=== PATIENT | male | born 1970 | race Asian ===

== ENCOUNTER 2020-08-26 14:45 | Outpatient (REF) | payer BC, SELFPAY ==
[2020-08-26 16:15] LABS: Estimated Average Glucose 126 mg/dL
== END 2020-08-26 14:46 | disposition home or self-care (01) ==
LOC: HO.HMGCLDS 14:45
PROVIDERS: PCP Internal Medicine; Visit Provider Internal Medicine
DX: E11.9 Type 2 diabetes mellitus without complications (principal)
CPT/HCPCS: 36415; 83036

== ENCOUNTER 2021-11-30 13:49 | Outpatient (REF) | payer BC, SELFPAY ==
--- NOTE | ~2021-11-30 | XR_ITS ---
EXAMINATION: XR THORACIC SPINE CLINICAL INFORMATION: Upper back pain, tenderness COMPARISON: None TECHNIQUE: 3 views of the thoracic spine were obtained. FINDINGS: Convex left upper thoracic scoliosis. Normal sagittal alignment. Mild loss of disc height and osteophytosis in the lower cervical spine by. Thoracic vertebral body and disc heights are maintained. No fracture seen. Posterior elements are intact. XR/XR thoracic spine 3V IMPRESSION: Mild convex left upper thoracic scoliosis. This could be positional or due to muscle spasm. Lower cervical degenerative disc disease.
--- NOTE | ~2021-11-30 | XR_ITS ---
EXAMINATION: XR SCAPULA, RIGHT CLINICAL INFORMATION: Right upper back pain and tenderness COMPARISON: None TECHNIQUE: AP and scapular Y views of the right scapula. FINDINGS: The bones and soft tissues are normal. No scapular fracture. Glenohumeral and acromioclavicular alignment is normal. XR/XR scapula RT IMPRESSION: No acute osseous abnormality of the right scapula.
== END 2021-11-30 13:50 | disposition home or self-care (01) ==
LOC: HO.HMGCX 13:49
PROVIDERS: PCP Internal Medicine; Visit Provider Internal Medicine
DX: M54.89 Other dorsalgia (principal)
CPT/HCPCS: 72072; 73010

== ENCOUNTER 2022-05-04 09:16 | Emergency (ER) | payer BC, SELFPAY ==
--- NOTE | 2022-05-04 | CA_ITS ---
Acquisition Time: 2022-05-04 14:13:12 Total Exercise Time: 00:06:57 Test Indications: CP, SOB Medications: SEE H Protocol: KIN Max HR: 153 BPM 90% of Pred: 170 BPM Max BP: 126/068 mmHG Max Work Load: 8.4 METS Exercise stress test with exercise 6 min 57 sec of Kin protocol, achieving 90% MPHR, with report of moderate sob and 6/10 anterior chest pressure, without arrythmia, with normotensive response to exercise, without EKG changes meeting criteria for ischemia. In recovery his chest pressure pressure resolved and breathing return to baseline., mild sob. Test reviewed with Dr Molina Referred By: Sincere Molina Overread By: EMMANUEL MAIN
--- NOTE | ~2022-05-04 | XR_ITS ---
EXAMINATION: XR CHEST CLINICAL INFORMATION: Chest pain COMPARISON: 10/02/2014 TECHNIQUE: 2 views of the chest were obtained. FINDINGS: No significant abnormality is noted involving the heart, lungs, mediastinum, bony thorax or soft tissues. XR/XR chest 2V IMPRESSION: Unremarkable examination.
--- NOTE | 2022-05-04 09:23 | ECG_ITS ---
Test Reason : CHEST PAIN Blood Pressure : / mmHG Vent. Rate : 100 BPM Atrial Rate : 100 BPM P-R Int : 162 ms QRS Dur : 090 ms QT Int : 374 ms P-R-T Axes : 071 057 070 degrees QTc Int : 482 ms Normal sinus rhythm Prolonged QT Abnormal ECG When compared with ECG of 04-MAY-2022 09:35, No significant change was found Referred By: Elena Ruvalcaba Electronically Signed By:Sincere Molina
--- NOTE | 2022-05-04 09:23 | ECG_ITS ---
Test Reason : CHEST PAIN Blood Pressure : / mmHG Vent. Rate : 083 BPM Atrial Rate : 083 BPM P-R Int : 166 ms QRS Dur : 094 ms QT Int : 402 ms P-R-T Axes : 069 051 070 degrees QTc Int : 472 ms Normal sinus rhythm Incomplete right bundle branch block Borderline ECG No previous ECGs available Referred By: Elena Ruvalcaba Electronically Signed By:Sincere Molina
[2022-05-04 09:25] VITALS: BP 136/87; PULSE 100; RESP 18; TEMP 36.8; O2SAT 98; BMI 23.5
--- NOTE | 2022-05-04 09:29 | PC.NURSE ---
51 y/o MBIBA from home with anxiety and chest pressure. hx of similar episodes. pt is aox3, calm and cooperative, VSS. plan for labs, EKG.
[2022-05-04 09:39] VITALS: BP 140/81; PULSE 78; RESP 14; TEMP 37.3; O2SAT 100
[2022-05-04 09:41] LABS: MANUAL DIFF FLAG NO
[2022-05-04 09:46] LABS: Basophils Percent Auto 0.6 % (0-2); Eosinophils Percent Auto 0.9 % (0-4); Hematocrit 46.1 % (42.0-52.0); Hemoglobin 15.8 g/dl (14.0-18.0); Imm Gran Abs Auto 0.01 X10*3/uL (0.00-0.03); Imm Gran Pct Auto 0.2 % (0.0-0.4); Lymphocytes Absolute Auto 1.1 X10*3/uL (1.2-4.9); Lymphocytes Percent Auto 23.9 % (20-40); Mean Corpuscular HGB Conc 34.3 g/dl (31.0-36.0); Mean Corpuscular Hemoglobin 28.1 pg (27.0-33.0); Mean Corpuscular Volume 81.9 fL (80.0-98.0); Mean Platelet Volume 8.7 fL (9.4-12.4); Monocytes Absolute Auto 0.2 X10*3/uL (0.1-1.2); Monocytes Percent Auto 4.7 % (2-11); Neutrophils Absolute Auto 3.2 x10*3/uL (2.0-8.3); Neutrophils Percent Auto 69.7 % (45-73); Platelet Count 261 X10*3/uL (160-400); Red Blood Count 5.63 X10*6/uL (4.60-5.80); Red Cell Distribution Width 11.8 % (11.0-16.0); White Blood Count 4.7 X10*3/uL (4.8-10.8)
[2022-05-04 10:00] LABS: COVID-19 Test Negative (Negative); IDNOW Serial# 16C4AD1C
[2022-05-04 10:02] LABS: Alanine Aminotransferase 20 U/L (0-40); Albumin Level 4.8 g/dL (3.5-5.0); Alkaline Phosphatase 83 U/L (39-117); Anion Gap 16 (12-20); Aspartate Amino Transferase 22 U/L (5-37); Bilirubin Total 0.9 mg/dL (0.0-1.0); Blood Urea Nitrogen 10 mg/dL (9-16); Calcium 9.8 mg/dL (8.4-10.2); Carbon Dioxide 24 mmol/L (22-29); Chloride 102 mmol/L (96-108); Creatinine Clr Calc Pharmacy 97.2; Estimated Glomerular Filt Rate > 60; Glucose Random 135 mg/dL (60-115); Magnesium 1.9 mg/dL (1.6-2.6); Potassium 4.1 mmol/L (3.3-5.1); Sodium 138 mmol/L (135-145); Total Protein 7.7 g/dL (6.5-8.0)
[2022-05-04 10:03] LABS: IDNOW Serial# BCCEAD1C; Influenza A Negative (Negative); Influenza B2 Negative (Negative)
[2022-05-04 10:08] LABS: B Type Natriuretic Peptide < 10 pg/mL (<100)
[2022-05-04 10:09] LABS: Troponin-I High Sensitivity < 3.5 ng/L (<3.5-35.0)
--- NOTE | 2022-05-04 10:15 | ED.CHESTPAIN ---
HPI - Chest Pain General Chief Complaint: Anxiety Stated Complaint: Chest pain per EMS Time Seen by Provider: 05/04/22 09:22 Source: patient Mode of arrival: ambulatory Limitations: no limitations History of Present Illness HPI narrative: Patient is a 51-year-old male presents to the emergency department for evaluation of chest pain described as pressure over the left anterior chest and shortness of breath both of which have been intermittent. He states that he awoke this morning with dizziness, and subsequently have the chest pressure and shortness of breath following. He states he is uncertain whether this may be related to his anxiety. He reports that his father 3 weeks ago from COVID-19 at 86 years old and he has been depressed about this. Yesterday he took Paxil and lorazepam for the 1st time in 6 months to try and help his symptoms. He is concerned that his current dizziness, chest pressure, shortness of breath may be in relation to anxiety/reinitiating these medications. Reports a past medical history of diabetes and high cholesterol. Related Data Allergies Allergy/AdvReac Type Severity Reaction Status Date / Time No Known Allergies Allergy Verified 05/04/22 09:28 Review of Systems Review of Systems: Constitutional : No Weight loss, No Fever, No Chills ENT/Mouth :? No sore throat, No Rhinorrhea Eyes: No Eye Pain, No Swelling Cardiovascular : pos Chest Pain, pos SOB, no Dyspnea on Exertion, No Orthopnea, No Edema, No Palpitations Respiratory : No Cough, No Sputum Gastrointestinal : No Nausea, No Vomiting, No Diarrhea, No abdominal Pain, No Hematochezia, No Melena Genitourinary : No Dysuria, No Urinary Frequency Musculoskeletal : No joint pain, No Myalgias, No Joint Swelling Skin : No Skin Lesions, No rash Neuro : No Weakness, No Numbness, positive Dizziness, No Headache Psych : No Anxiety/Panic, No Depression Heme/Lymph: No Bruising, No Lymphadenopathy Endocrine : No Polyuria, No Polydipsia Yes all other systems are reviewed and are negative [facility] Past Medical History Attestation statement: The following information was validated with the patient. Source: old records reviewed Physical Exam Vital Signs: Vital Signs: Last Vital Signs Temp 99.2 F 05/04/22 09:39 Pulse 70 05/04/22 16:00 Resp 16 05/04/22 16:00 BP 116/67 05/04/22 15:34 Pulse Ox 100 05/04/22 16:00 O2 Del Method 05/04/22 16:00 BMI result Body Mass Index 23.5 Appearance: Alert.?Oriented to person, place and time. No acute distress.?Normal affect. Eyes: Pupils equal, round and reactive to light.? ENT: Pharynx normal.?? Neck: Normal inspection.? Neck supple.?? CVS: Heart sounds normal. Normal heart rate and rhythm.? Pulses normal.?? Respiratory: No respiratory distress.? Lung sounds clear to auscultation bilaterally?? Abdomen: Soft and non-tender. Normoactive bowel sounds. No pulsatile mass.?? Skin: Skin warm and dry.? Normal skin color.? ? Extremities: No lower extremity edema.? No calf ttp? Neuro: Moves all extremities spontaneously. Sensation intact bilaterally. CN II-XII intact. No focal neuro deficits. Ambulates with normal steady gait. Course Reevaluation(s) Reevaluation #1: CBC is overall unremarkable. CMP is unremarkable. Troponin <3.5, EKG reveals normal sinus rhythm with incomplete right bundle-branch block with ST upsloping in anterior/lateral lead V3-V6, none prior available for review. Will obtain delta troponin. BMP is within normal limits. Chest x-ray is without acute cardiopulmonary process. Reevaluation #2: Cardiology Dr. Molina at bedside and evaluated patient. Nonspecific ST changes, repeat EKG with improvement in of slope in V3-V5, however changes more prominent in V2. Patient does have anxiety, but currently with improvement in pressure and shortness of breath though not completely resolved after being medicated prior. Serial troponin have remained <3.5. Will determine whether patient can have stress test obtained today, will keep NPO at this time. Time: 13:42 Reevaluation #3: Received call from Cardiology, Dr. Molina, prior to stress testing patient was at that time reporting shortness of breath. He was able to engage on treadmill for 7 minutes for stress testing, he did continue to have reports of shortness of breath and chest pressure, there were however no EKG changes. Cardiology feels this is most likely anxiety, however he may follow up outpatient in their office. At the time of my re-examination currently, he does appear significantly anxious. Patient to receive lorazepam at this time, his is going to drive him home from the emergency department. He is stable.. Time: 15:55 Medications Administered Discontinued Medications Generic Name Dose Route Start Last Admin Trade Name Lesly PRN Reason Stop Dose Admin Aspirin 324 mg 05/04/22 10:21 05/04/22 10:23 Aspirin 81 Mg Tab.Chew PO 05/04/22 10:22 Not Given ONCE ONE Lorazepam 1 mg 05/04/22 15:53 05/04/22 16:08 Lorazepam 1 Mg Tablet PO 05/04/22 15:54 1 mg ONCE ONE Administration Nitroglycerin 0.5 inch 05/04/22 10:21 05/04/22 10:29 Nitroglycerin 2 % Oint 1 Gm Packet TRANSDERMA 05/04/22 10:22 0.5 inch ONCE ONE Administration Medical Decision Making Medical Decision Making [facility] Narrative: Patient is a 51-year-old male with a past medical history of diabetes, hyperlipidemia, presenting to emergency department for evaluation of chest pain, shortness of breath, and dizziness with additional reports of anxiety as outlined in HPI. At the time of my examination he is overall well-appearing. He is afebrile without tachycardia, tachypnea, or hypoxia. Mildly hypertensive. No respiratory distress. Physical examination is overall benign. Will obtain CBC to evaluate for leukocytosis/ anemia, CMP and lipase to evaluate for abnormal electrolytes /abnormal renal function/ abnormal hepatic/biliary function, EKG and troponin to evaluate for ischemia/ACS. Chest x-ray to evaluate for consolidation/ infiltrate/ mass/ pulmonary congestion and will obtain viral testing. Patient received aspirin 324 mg orally from EMS prior to arrival, will also trial nitro paste at this time. Differential Diagnosis Differential Diagnoses: The differential diagnosis associated with the presentation includes (ACS, pleural effusion, CHF, pneumonia, viral upper respiratory infection, musculoskeletal, anxiety) Consult Healthcare Provider Management of the patient was discussed with: Pipeline Engineer (Cardiology Dr. Molina) Lab Data [facility] Lab Attestation statement: I reviewed the patient's lab results. 05/04/22 09:36 05/04/22 09:36 Labs: Lab Results 05/04/22 05/04/22 05/04/22 Range/Units 09:36 09:36 09:36 WBC 4.7 L (4.8-10.8) X10*3/uL RBC 5.63 (4.60-5.80) X10*6/uL Hgb 15.8 (14.0-18.0) g/dl Hct 46.1 (42.0-52.0) % MCV 81.9 (80.0-98.0) fL MCH 28.1 (27.0-33.0) pg MCHC 34.3 (31.0-36.0) g/dl RDW 11.8 (11.0-16.0) % Plt Count 261 (160-400) X10*3/uL MPV 8.7 L (9.4-12.4) fL Immature Gran % (Auto) 0.2 (0.0-0.4) % Neut % (Auto) 69.7 (45-73) % Lymph % (Auto) 23.9 (20-40) % [place] % (Auto) 4.7 (2-11) % Eos % (Auto) 0.9 (0-4) % Baso % (Auto) 0.6 (0-2) % Lymph # (Auto) 1.1 L (1.2-4.9) X10*3/uL [place] # (Auto) 0.2 (0.1-1.2) X10*3/uL Eos # (Auto) 0.0 (0.0-0.4) X10*3/uL Baso # (Auto) 0.0 (0.0-0.2) X10*3/uL Abs Immat Gran (auto) 0.01 (0.00-0.03) X10*3/uL Absolute Neuts (auto) 3.2 (2.0-8.3) x10*3/uL Absolute Nucleated RBC 0.000 (0.0-0.012) X10*3/uL Nucleated RBC % (auto) 0.0 (0.0-0.2) /100WBC Sodium 138 (135-145) mmol/L Potassium 4.1 (3.3-5.1) mmol/L Chloride 102 (96-108) mmol/L Carbon Dioxide 24 (22-29) mmol/L Anion Gap 16 (12-20) BUN 10 (9-16) mg/dL Creatinine 0.85 (0.5-1.4) mg/dL Estim Creat Clear Calc 97.2 Estimated GFR > 60 Random Glucose 135 H (60-115) mg/dL Calcium 9.8 (8.4-10.2) mg/dL Magnesium 1.9 (1.6-2.6) mg/dL Total Bilirubin 0.9 (0.0-1.0) mg/dL AST 22 (5-37) U/L ALT 20 (0-40) U/L Alkaline Phosphatase 83 (39-117) U/L Troponin I High Sens < 3.5 (<3.5-35.0) ng/L B-Natriuretic Peptide (<100) pg/mL Total Protein 7.7 (6.5-8.0) g/dL Albumin 4.8 (3.5-5.0) g/dL COVID-19 ([facility]IS EDUARDO) (Negative) COVID-19 Clin Com Influenza Type A ([facility]) (Negative) Influenza Type B ([facility]) (Negative) Influenza A & B Note 05/04/22 05/04/22 05/04/22 Range/Units 09:36 09:36 09:36 WBC (4.8-10.8) X10*3/uL RBC (4.60-5.80) X10*6/uL Hgb (14.0-18.0) g/dl Hct (42.0-52.0) % MCV (80.0-98.0) fL MCH (27.0-33.0) pg MCHC (31.0-36.0) g/dl RDW (11.0-16.0) % Plt Count (160-400) X10*3/uL MPV (9.4-12.4) fL Immature Gran % (Auto) (0.0-0.4) % Neut % (Auto) (45-73) % Lymph % (Auto) (20-40) % [place] % (Auto) (2-11) % Eos % (Auto) (0-4) % Baso % (Auto) (0-2) % Lymph # (Auto) (1.2-4.9) X10*3/uL [place] # (Auto) (0.1-1.2) X10*3/uL Eos # (Auto) (0.0-0.4) X10*3/uL Baso # (Auto) (0.0-0.2) X10*3/uL Abs Immat Gran (auto) (0.00-0.03) X10*3/uL Absolute Neuts (auto) (2.0-8.3) x10*3/uL Absolute Nucleated RBC (0.0-0.012) X10*3/uL Nucleated RBC % (auto) (0.0-0.2) /100WBC Sodium (135-145) mmol/L Potassium (3.3-5.1) mmol/L Chloride (96-108) mmol/L Carbon Dioxide (22-29) mmol/L Anion Gap (12-20) BUN (9-16) mg/dL Creatinine (0.5-1.4) mg/dL Estim Creat Clear Calc Estimated GFR Random Glucose (60-115) mg/dL Calcium (8.4-10.2) mg/dL Magnesium (1.6-2.6) mg/dL Total Bilirubin (0.0-1.0) mg/dL AST (5-37) U/L ALT (0-40) U/L Alkaline Phosphatase (39-117) U/L Troponin I High Sens (<3.5-35.0) ng/L B-Natriuretic Peptide < 10 (<100) pg/mL Total Protein (6.5-8.0) g/dL Albumin (3.5-5.0) g/dL COVID-19 ([facility]UARDO) Negative (Negative) COVID-19 Clin Com See Note Influenza Type A ([facility]) Negative (Negative) Influenza Type B ([facility]) Negative (Negative) Influenza A & B Note See Note 05/04/22 05/04/22 Range/Units 10:59 12:36 WBC (4.8-10.8) X10*3/uL RBC (4.60-5.80) X10*6/uL Hgb (14.0-18.0) g/dl Hct (42.0-52.0) % MCV (80.0-98.0) fL MCH (27.0-33.0) pg MCHC (31.0-36.0) g/dl RDW (11.0-16.0) % Plt Count (160-400) X10*3/uL MPV (9.4-12.4) fL Immature Gran % (Auto) (0.0-0.4) % Neut % (Auto) (45-73) % Lymph % (Auto) (20-40) % [place] % (Auto) (2-11) % Eos % (Auto) (0-4) % Baso % (Auto) (0-2) % Lymph # (Auto) (1.2-4.9) X10*3/uL [place] # (Auto) (0.1-1.2) X10*3/uL Eos # (Auto) (0.0-0.4) X10*3/uL Baso # (Auto) (0.0-0.2) X10*3/uL Abs Immat Gran (auto) (0.00-0.03) X10*3/uL Absolute Neuts (auto) (2.0-8.3) x10*3/uL Absolute Nucleated RBC (0.0-0.012) X10*3/uL Nucleated RBC % (auto) (0.0-0.2) /100WBC Sodium (135-145) mmol/L Potassium (3.3-5.1) mmol/L Chloride (96-108) mmol/L Carbon Dioxide (22-29) mmol/L Anion Gap (12-20) BUN (9-16) mg/dL Creatinine (0.5-1.4) mg/dL Estim Creat Clear Calc Estimated GFR Random Glucose (60-115) mg/dL Calcium (8.4-10.2) mg/dL Magnesium (1.6-2.6) mg/dL Total Bilirubin (0.0-1.0) mg/dL AST (5-37) U/L ALT (0-40) U/L Alkaline Phosphatase (39-117) U/L Troponin I High Sens < 3.5 < 3.5 (<3.5-35.0) ng/L B-Natriuretic Peptide (<100) pg/mL Total Protein (6.5-8.0) g/dL Albumin (3.5-5.0) g/dL COVID-19 ([facility]IS EDUARDO) (Negative) COVID-19 Clin Com Influenza Type A ([facility]) (Negative) Influenza Type B ([facility]) (Negative) Influenza A & B Note Independent Interpretation I performed an independent interpretation of an: EKG and Plain X-Ray (I have personally interpreted chest x-ray and agree with radiologist impression.) Interpretation: EKG Rate: 83 Rhythm:?normal sinus rhythm with incomplete right bundle-branch block Spencer:? Normal Normal P waves.? Normal AUDREY.?? Normal QRS complex.?? ST T wave :??No ST elevation. ST upsloping in anterior/lateral lead V3-V6 qTC: 472 prior studies:? None prior available for review The study has been interpreted contemporaneously by me. Radiology Impression Discussion of test interpretation with radiology: I have reviewed the radiologist's reading. Radiologist Impression: XR/XR chest 2V IMPRESSION: Unremarkable examination. Prescription Management I considered prescription management with: Other (Anxioltic prescribed outpatient) Chronic Conditions Patient?s care impacted by: Diabetes Critical Care Time Critical Care Time Critical Care Time: Yes Total Critical Care Time: 45 Attestation: I personally attest to this critical care time spent taking care of the patient exclusive of all other billable procedures was approximately 45 minutes including initial evaluation of patient, ordering tests, x-ray interpretation, EKG interpretation, medical consultation, documentation, re-evaluation. Discharge Plan Discharge Clinical Impression: Chest pain, Acute anxiety Patient Disposition: Home, Self-Care Instructions: Chest Pain (ED), Anxiety (ED) Additional Instructions: As we discussed, your testing today was overall normal. It is unlikely that the symptoms you are experiencing are in relation to your heart. I suspect that your chest pain and shortness of breath are in relation to your levels of anxiety. It is important that you continue to follow with your primary care provider for management of your anxiety. Continue taking Paxil and lorazepam I have included the office information for the engineering professionals, please call their office to arrange for a follow-up visit outpatient You may return back to the emergency department with any new or worsening symptoms or concerns. Referrals: Sincere Molina MD [Physician] - Leo Nagy MD [Primary Care Provider] - Interventions: ED Discharge Assessment Last Done: 05/04/22 16:16 Discharge Date/Time: 05/04/22 16:16
[2022-05-04] MEDS: Nitroglycerin 2 % Oint 1 GM Packet 0.5 INCH TRANSDERMA (10:29)
[2022-05-04 11:30] LABS: Troponin-I High Sensitivity < 3.5 ng/L (<3.5-35.0)
--- NOTE | 2022-05-04 12:52 | ECG_ITS ---
Test Reason : CARDIAC CHANGES Blood Pressure : / mmHG Vent. Rate : 097 BPM Atrial Rate : 097 BPM P-R Int : 158 ms QRS Dur : 082 ms QT Int : 374 ms P-R-T Axes : 070 046 068 degrees QTc Int : 474 ms Normal sinus rhythm Normal ECG When compared with ECG of 04-MAY-2022 12:48, No significant change was found Referred By: Sincere Molina Electronically Signed By:Sincere Molina
[2022-05-04 13:17] LABS: Troponin-I High Sensitivity < 3.5 ng/L (<3.5-35.0)
[2022-05-04 13:25] VITALS: BP 120/72; PULSE 95; RESP 16; O2SAT 97
--- NOTE | 2022-05-04 13:48 | P.CONCA_ITS ---
History of Present Illness History of Present Illness Date of Service: 05/04/22 Requesting physician: Leo Nagy Chief complaint: Chest pain Narrative: 51-year-old gentleman with background history of anxiety disorder who is presenting with shortness of breath and chest discomfort. There is a language barrier. He is complaining of left-sided chest discomfort. He is unable to describe how it feels and is describing a like a pain. He said today morning he felt dizzy and then developed breathing problems. He has been taking Paxil previously but it appears he was not taking regularly and restarted yesterday. He is saying he has anxiety disorder but never had panic attacks. Denying any other issues right now. Seems quite anxious and shaking due to anxiety. [facility] Social History Social History Smoked in Last 30 Days: No Advance Directives: No Advance Directives Information Provided: No Meds Allergies Allergy/AdvReac Type Severity Reaction Status Date / Time No Known Allergies Allergy Verified 05/04/22 09:28 Physical Exam Vital Signs: Vital Signs: Last Vital Signs Temp 99.2 F 05/04/22 09:39 Pulse 95 05/04/22 13:25 Resp 16 05/04/22 13:25 BP 120/72 05/04/22 13:25 Pulse Ox 97 05/04/22 13:25 O2 Del Method 05/04/22 13:25 BMI result Body Mass Index 23.5 GENERAL APPEARANCE: in no acute distress, anxious appearing.. NECK: no carotid bruit, no jugular venous distention. SKIN: no suspicious lesions, warm and dry. HEART: no murmurs, regular rate and rhythm. LUNGS: clear to auscultation bilaterally. ABDOMEN: soft, nontender. EXTREMITIES: no edema. PERIPHERAL PULSES: equal. NEUROLOGIC: No gross deficits, AAO X 3 Objective Labs and Meds 05/04/22 09:36 05/04/22 09:36 Lab results: Laboratory Results - last 24 hr 05/04/22 05/04/22 05/04/22 09:36 09:36 09:36 WBC 4.7 L RBC 5.63 Hgb 15.8 Hct 46.1 MCV 81.9 MCH 28.1 MCHC 34.3 RDW 11.8 Plt Count 261 MPV 8.7 L Immature Gran % (Auto) 0.2 Neut % (Auto) 69.7 Lymph % (Auto) 23.9 [place] % (Auto) 4.7 Eos % (Auto) 0.9 Baso % (Auto) 0.6 Lymph # (Auto) 1.1 L [place] # (Auto) 0.2 Eos # (Auto) 0.0 Baso # (Auto) 0.0 Abs Immat Gran (auto) 0.01 Absolute Neuts (auto) 3.2 Absolute Nucleated RBC 0.000 Nucleated RBC % (auto) 0.0 Sodium 138 Potassium 4.1 Chloride 102 Carbon Dioxide 24 Anion Gap 16 BUN 10 Creatinine 0.85 Estim Creat Clear Calc 97.2 Estimated GFR > 60 Random Glucose 135 H Calcium 9.8 Magnesium 1.9 Total Bilirubin 0.9 AST 22 ALT 20 Alkaline Phosphatase 83 Troponin I High Sens < 3.5 B-Natriuretic Peptide Total Protein 7.7 Albumin 4.8 COVID-19 ([facility]O) COVID-19 Clin Com Influenza Type A ([facility]) Influenza Type B ([facility]) Influenza A & B Note 05/04/22 05/04/22 05/04/22 09:36 09:36 09:36 WBC RBC Hgb Hct MCV MCH MCHC RDW Plt Count MPV Immature Gran % (Auto) Neut % (Auto) Lymph % (Auto) [place] % (Auto) Eos % (Auto) Baso % (Auto) Lymph # (Auto) [place] # (Auto) Eos # (Auto) Baso # (Auto) Abs Immat Gran (auto) Absolute Neuts (auto) Absolute Nucleated RBC Nucleated RBC % (auto) Sodium Potassium Chloride Carbon Dioxide Anion Gap BUN Creatinine Estim Creat Clear Calc Estimated GFR Random Glucose Calcium Magnesium Total Bilirubin AST ALT Alkaline Phosphatase Troponin I High Sens B-Natriuretic Peptide < 10 Total Protein Albumin COVID-19 ([facility] EDUARDO) Negative COVID-19 Clin Com See Note Influenza Type A ([facility]) Negative Influenza Type B ([facility]) Negative Influenza A & B Note See Note 05/04/22 05/04/22 10:59 12:36 WBC RBC Hgb Hct MCV MCH MCHC RDW Plt Count MPV Immature Gran % (Auto) Neut % (Auto) Lymph % (Auto) [place] % (Auto) Eos % (Auto) Baso % (Auto) Lymph # (Auto) [place] # (Auto) Eos # (Auto) Baso # (Auto) Abs Immat Gran (auto) Absolute Neuts (auto) Absolute Nucleated RBC Nucleated RBC % (auto) Sodium Potassium Chloride Carbon Dioxide Anion Gap BUN Creatinine Estim Creat Clear Calc Estimated GFR Random Glucose Calcium Magnesium Total Bilirubin AST ALT Alkaline Phosphatase Troponin I High Sens < 3.5 < 3.5 B-Natriuretic Peptide Total Protein Albumin COVID-19 ([facility] EDUARDO) COVID-19 Clin Com Influenza Type A ([facility]) Influenza Type B ([facility]) Influenza A & B Note Imaging Radiologist's impression: Impressions Chest X-Ray 05/04/22 09:54 IMPRESSION: Unremarkable examination. Assessment and Plan (1) Chest pain: Status: Acute Plan [age] year gentleman with chest pain or shortness of breath starting this m orning. ECG reviewed and does not have any dynamic changes. Biomarkers are also normal. Blood pressure control is good. He has significant anxiety and potentially that is playing a role in his s ymptoms. Recommend doing an exercise stress test. We are able to arrange it today and who will perform it in the next hour. If stress test is normal then he can be discharged home. Thank you for allowing me to participate in the care of your patient. Please feel free to contact me if you have any questions. Time Spent With Patient Time: Total time managing care of this patient today ____ minutes. Procedures Date of Service Date of Service: 05/04/22
[2022-05-04 15:34] VITALS: BP 116/67; PULSE 98; RESP 18; O2SAT 100
[2022-05-04 16:00] VITALS: PULSE 70; RESP 16; O2SAT 100
[2022-05-04] MEDS: LORazepam 1 MG TABLET PO (16:08)
== END 2022-05-04 16:16 | disposition home or self-care (01) ==
PROVIDERS: Nurse Practitioner Family; Emergency Provider Student in an Organized Health Care Education/Training Program; PCP Internal Medicine
DX: R07.89 Other chest pain (principal); F41.1 Generalized anxiety disorder; F43.0 Acute stress reaction; R06.02 Shortness of breath; Z20.822 Contact with and (suspected) exposure to COVID-19; Z20.828 Contact with and (suspected) exposure to other viral communicable diseases; Z79.899 Other long term (current) drug therapy
CPT/HCPCS: 36415; 71046; 80053; 83735; 83880; 84484; 85025; 87502; 87635; 93005; 93017; 99284; 99285

== ENCOUNTER 2022-11-21 08:21 | Day surgery (SDC) | payer BC, SELFPAY ==
--- NOTE | 2022-11-17 11:51 | HO.ANESPROP2 ---
Documented by User: Sheryl Latif NP 11/17/22 11:53 HPI - Anesthesia Eval Consult details Narrative: 52yo M for Colonoscopy [facility] Active Problems Active Problems: All Active Problems (Updated 05/05/22 @ 00:00 by Lynette Redd) Chest pain (Acute) Past Medical History Medical History Anxiety HLD (hyperlipidemia) Social History Social History Advance Directives: No Advance Directives Information Provided: Yes Meds Allergies Allergy/AdvReac Type Severity Reaction Status Date / Time No Known Allergies Allergy Verified 05/04/22 09:28 Home Medications Medication Instructions Recorded Confirmed Last Taken Type atorvastatin 10 mg tablet 10 mg PO DAILY 11/17/22 11/17/22 Unknown History lorazepam 2 mg tablet 2 mg PO TID PRN Anxiety 11/17/22 11/17/22 Unknown History Exam Exam Date and Time: November 17, 2022 115 Assessment and Plan Assessment Anesthesia Assessment: Chart Reviewed Documented by User: Nadya Dee MD 11/21/22 09:05 [facility] Past Medical History Medical History Anxiety HLD (hyperlipidemia) Surgical History History of Problems with Anesthesia: No Social History Social History Advance Directives: No Advance Directives Information Provided: Yes Meds Allergies Allergy/AdvReac Type Severity Reaction Status Date / Time No Known Allergies Allergy Verified 05/04/22 09:28 Home Medications Medication Instructions Recorded Confirmed Last Taken Type atorvastatin 10 mg tablet 10 mg PO DAILY 11/17/22 11/17/22 Unknown History lorazepam 2 mg tablet 2 mg PO TID PRN Anxiety 11/17/22 11/17/22 Unknown History Assessment and Plan Assessment Anesthesia Assessment: Anesthesia Plan Discussed Final Anesthetic Review History of Problems with Anesthesia: No NPO: Yes ASA Class: II Final Preanesthetic Review: Meds/Allgs Chart Reviewed, Consent Obtained/Reviewed and Anes Risks/Benef Reviewed Patient Risk: Low Procedure Risk: Low Anesthetic Plan Anesthetic Plan: MAC: Disposition: Standard PACU
[2022-11-21 09:18] VITALS: BMI 25.4
[2022-11-21 09:21] VITALS: BP 111/69; PULSE 70; RESP 16; TEMP 36.2; O2SAT 99
[2022-11-21] MEDS: Lactated Ringers 1,000 ML 100 ML IVCONT (09:29)
[2022-11-21 10:52] VITALS: BP 98/56; PULSE 63; RESP 12; TEMP 36.1; O2SAT 98
--- NOTE | 2022-11-21 10:56 | PM.OP ---
Brief Operative Note Date of Service: 11/21/22 Pre-op diagnosis: Screening Post-op diagnosis: other (Polyp) Procedure: Colonoscopy to the cecum and TI with cold snare polypectomy x 1 Surgeon: Romulo Guerrero Anesthesia: MAC Was an Windows System Admin used for this Procedure?: No Estimated blood loss (mL): 2.0 Pathology: other (A. Polyp at 25cm) Condition: stable Disposition: PACU
[2022-11-21 11:07] VITALS: BP 119/74; PULSE 48; RESP 16; O2SAT 98
[2022-11-21 11:22] VITALS: BP 118/77; PULSE 54; RESP 16; O2SAT 100
[2022-11-21 11:37] VITALS: BP 113/72; PULSE 54; RESP 16; O2SAT 100
[2022-11-21 11:49] VITALS: BP 105/56; PULSE 55; RESP 16; TEMP 36.2; O2SAT 99
--- NOTE | 2022-11-21 12:28 | OP_ITS ---
DATE OF SERVICE: 11/21/2022 SURGEON: Romulo Guerrero MD INDICATIONS: The patient presents for evaluation of colorectal cancer screening. Full consent obtained from him for this, including risks of bleeding and perforation. PREOPERATIVE DIAGNOSIS: Colorectal cancer screening. POSTOPERATIVE DIAGNOSIS: PROCEDURE PERFORMED: Colonoscopy to cecum and terminal ileum with cold snare polypectomy. ESTIMATED BLOOD LOSS: COMPLICATIONS: ANESTHESIA: Monitored anesthesia care. ASSISTANTS: SPECIMENS: POSTOPERATIVE DIAGNOSES: Colorectal cancer screening. Small colon polyp, internal hemorrhoids. DESCRIPTION OF PROCEDURE: The patient was placed in the left lateral decubitus position. The digital rectal exam revealed no abnormalities. The Olympus video pediatric colonoscope was entered into the rectum and advanced easily to the cecum. Once in the cecum, I did identify a normal-appearing cecal pouch with appendiceal orifice and a normal-appearing ileocecal valve. The terminal ileum was cannulated and appeared normal. The scope was withdrawn back in the colon. The entire cecum and ileocecal valve appeared normal. The scope was then slowly withdrawn assessing all mucosal surfaces carefully. Preparation was excellent. At 25 cm was a flat, approximately 5 or 6 mm polyp, which was removed by cold snare polypectomy and recovered by suction. The polypectomy site appeared clean, without any sign of residual polyp nor significant bleeding. I did not visualize any other polyps, colitis, nor angiodysplasia. In the rectum, scope was retroflexed visualizing small internal hemorrhoids, but no other pathology. The rectal mucosa appeared normal. The scope was straightened and withdrawn from the patient. He tolerated the procedure well and was returned to recovery area in stable condition. IMPRESSION: 1. Small colon polyp. 2. Small internal hemorrhoids. PLAN: If the polyp is a tubular adenoma, I would recommend a followup colonoscopy in 5 years. If it is only hyperplastic, I would recommend a followup coloscopy in 10 years. He was advised not to use any aspirin and NSAIDs for 1 week. Romulo Guerrero MD RMW/KANEL / [id number] MTDD
== END 2022-11-21 12:45 | disposition home or self-care (01) ==
PROVIDERS: PCP Internal Medicine; Visit Provider Internal Medicine
PROC: 0DJD8ZZ Inspection of Lower Intestinal Tract, Via Natural or Artificial Opening Endoscopic (ICD-10-PCS; CPT 45378; principal; 2022-11-21 09:30)
DX: Z12.11 Encounter for screening for malignant neoplasm of colon (principal); K63.5 Polyp of colon; K64.8 Other hemorrhoids; E78.5 Hyperlipidemia, unspecified; F41.1 Generalized anxiety disorder; Z79.899 Other long term (current) drug therapy
CPT/HCPCS: 45385; 88305; J2250

== ENCOUNTER 2023-02-16 15:30 | Outpatient (REF) | payer BC, SELFPAY ==
--- NOTE | ~2023-02-16 | CT_ITS ---
EXAMINATION: CT SOFT TISSUE NECK WITH CONTRAST CLINICAL INFORMATION: Sialoadenitis. COMPARISON: None TECHNIQUE: Following the administration of 100 mL of Omnipaque 300 intravenous contrast, helical imaging was performed in the axial plane with generation of coronal and sagittal reformatted images. This CT examination was performed using dose optimization techniques as appropriate, variously including the following: *Automated exposure control *Adjustment of mA and/or kV according to patient size (this includes techniques or standardized protocols for targeted exams where dose is matched to indication/reason for exam; i.e. extremities or head) *Use of iterative reconstruction technique DLP: 338 mGy-cm FINDINGS: The bilateral parotid glands appear normal without inflammation or calculi. The submandibular glands also appear normal without inflammation or calculi. There is no evidence of [place]'s duct or Stensen's duct dilatation. The pharyngeal and laryngeal contours appear normal. No mass is seen. No enlarged cervical chain lymph nodes are seen. The thyroid gland is unremarkable. The major neck vessels are patent. There is an aberrant right subclavian artery. No acute intracranial abnormality is seen. The imaged lungs are clear. Mild degenerative changes are seen within the spine. Periodontal and periapical disease is noted in the dentition. The right maxillary sinus appears hypoplastic and partly opacified with polypoid mucosal thickening. CT/CT soft tissue neck w IV con IMPRESSION: No neck mass or suspicious lymphadenopathy identified. The parotid and submandibular glands appear normal.
[2023-02-16] MEDS: iohexoL 350 MG/ML 100 ML INFUS..BTL 60 ML IV (17:21)
[2023-02-17 08:59] LABS: Creatinine POC 0.5 mg/dL (0.5-1.4); GFR POC > 60
== END 2023-02-16 15:31 | disposition home or self-care (01) ==
LOC: HO.CT 15:30
PROVIDERS: PCP Internal Medicine; Visit Provider Internal Medicine
DX: K11.20 Sialoadenitis, unspecified (principal); M54.2 Cervicalgia
CPT/HCPCS: 70491; 82565; Q9967

== ENCOUNTER 2023-03-02 13:56 | Outpatient (REF) | payer BC, SELFPAY ==
[2023-03-02 15:58] LABS: MANUAL DIFF FLAG NO
[2023-03-02 16:06] LABS: Basophils Percent Auto 0.5 % (0-2); Eosinophils Percent Auto 0.8 % (0-4); Hematocrit 45.6 % (42.0-52.0); Hemoglobin 15.1 g/dl (14.0-18.0); Imm Gran Abs Auto 0.01 X10*3/uL (0.00-0.03); Imm Gran Pct Auto 0.3 % (0.0-0.4); Lymphocytes Absolute Auto 0.9 X10*3/uL (1.2-4.9); Lymphocytes Percent Auto 23.7 % (20-40); Mean Corpuscular HGB Conc 33.1 g/dl (31.0-36.0); Mean Corpuscular Hemoglobin 28.6 pg (27.0-33.0); Mean Corpuscular Volume 86.4 fL (80.0-98.0); Mean Platelet Volume 9.6 fL (9.4-12.4); Monocytes Absolute Auto 0.2 X10*3/uL (0.1-1.2); Monocytes Percent Auto 5.5 % (2-11); Neutrophils Absolute Auto 2.6 x10*3/uL (2.0-8.3); Neutrophils Percent Auto 69.2 % (45-73); Platelet Count 241 X10*3/uL (160-400); Red Blood Count 5.28 X10*6/uL (4.60-5.80); Red Cell Distribution Width 12.7 % (11.0-16.0); White Blood Count 3.8 X10*3/uL (4.8-10.8)
[2023-03-02 16:21] LABS: Alanine Aminotransferase 22 U/L (0-40); Albumin Level 4.4 g/dL (3.5-5.0); Alkaline Phosphatase 80 U/L (39-117); Anion Gap 10 (12-20); Aspartate Amino Transferase 22 U/L (5-37); Bilirubin Total 0.6 mg/dL (0.0-1.0); Blood Urea Nitrogen 13 mg/dL (9-16); Calcium 9.9 mg/dL (8.4-10.2); Carbon Dioxide 32 mmol/L (22-29); Chloride 102 mmol/L (96-108); Estimated Glomerular Filt Rate > 60; Glucose Random 109 mg/dL (60-115); Lipase 21 U/L (8-78); Potassium 4.8 mmol/L (3.3-5.1); Sodium 139 mmol/L (135-145); Total Protein 7.6 g/dL (6.5-8.0)
[2023-03-02 17:04] LABS: Amylase 83 U/L (28-100)
== END 2023-03-02 13:57 | disposition home or self-care (01) ==
LOC: HO.HMGCLDS 13:56
PROVIDERS: PCP Internal Medicine; Visit Provider Internal Medicine
DX: R10.9 Unspecified abdominal pain (principal); R53.83 Other fatigue
CPT/HCPCS: 36415; 80053; 82150; 83690; 85025

== ENCOUNTER 2023-04-10 09:16 | Outpatient (REF) | payer BC, SELFPAY ==
--- NOTE | ~2023-04-10 | CT_ITS ---
EXAMINATION: CT ABDOMEN AND PELVIS WITH CONTRAST CLINICAL INFORMATION: Abdominal pain. COMPARISON: None available. TECHNIQUE: Multidetector volumetric images were obtained from the superior aspect of the liver through the pubic symphysis following administration 85 mL of Omnipaque 350 intravenous contrast. Sagittal and coronal reformatted images were obtained on the technologist's workstation. Oral contrast: No This CT examination was performed using dose optimization techniques as appropriate, variously including the following: *Automated exposure control *Adjustment of mA and/or kV according to patient size (this includes techniques or standardized protocols for targeted exams where dose is matched to indication/reason for exam; i.e. extremities or head) *Use of iterative reconstruction technique DLP: 225 mGy-cm FINDINGS: LUNG BASES: The visualized lung bases are unremarkable. LIVER, GALLBLADDER, AND BILIARY TREE: The liver is mildly decreased in attenuation. Few hepatic cysts and additional scattered hypodensities too small to characterize. No biliary ductal dilatation is present. The gallbladder is unremarkable with no evidence of radiopaque gallstones, gallbladder wall thickening, or obvious pericholecystic inflammatory changes. PANCREAS: No ductal dilatation. SPLEEN: Not enlarged. ADRENAL GLANDS: No adrenal mass. KIDNEYS AND URETERS: The kidneys are symmetric in size and enhancement. No hydronephrosis. No perinephric stranding. BLADDER: Circumferential wall thickening. GASTROINTESTINAL TRACT: Jejunojejunal intussusception in the left lower quadrant No small bowel obstruction. Appendix is within normal limits. There is wall thickening of the rectosigmoid colon. No clear evidence of underlying diverticular disease. ABDOMINAL WALL: No significant hernia is appreciated. LYMPH NODES: No bulky lymphadenopathy. VASCULAR: Normal caliber abdominal aorta. PELVIC VISCERA: Enlarged prostate gland. OSSEOUS STRUCTURES: No destructive bone lesions. CT/CT abdomen pelvis w IV con IMPRESSION: Long segment wall thickening of the rectosigmoid colon. No clear evidence of diverticulosis. This likely represents proctocolitis. Infectious and inflammatory etiologies should be considered. Jejunojejunal intussusception in the left lower quadrant. Circumferential wall thickening of the urinary bladder. Advise correlation with urinalysis.
[2023-04-11 07:06] LABS: Creatinine POC 0.7 mg/dL (0.5-1.4); GFR POC 60
== END 2023-04-10 09:17 | disposition home or self-care (01) ==
LOC: HO.CT 09:16
PROVIDERS: PCP Internal Medicine; Visit Provider Internal Medicine
DX: R10.9 Unspecified abdominal pain (principal)
CPT/HCPCS: 74177; 82565; Q9967

== ENCOUNTER 2023-06-28 13:17 | Outpatient (REF) | payer BC, SELFPAY ==
--- NOTE | ~2023-06-28 | XR_ITS ---
EXAMINATION: XR CHEST CLINICAL INFORMATION: Evaluation for pulmonary nodules COMPARISON: 05/04/2022 TECHNIQUE: 2 views of the chest were obtained. FINDINGS: Lungs grossly clear. No masses or consolidations are seen. Section CT is better to detect small nodules. No change however from the prior study. Heart and pulmonary vessels normal. No pleural effusion. XR/XR chest 2V IMPRESSION: No active disease.
== END 2023-06-28 13:18 | disposition home or self-care (01) ==
LOC: HO.HMGCX 13:17
PROVIDERS: PCP Internal Medicine; Visit Provider Internal Medicine
DX: R91.8 Other nonspecific abnormal finding of lung field (principal)
CPT/HCPCS: 71046

== ENCOUNTER 2023-08-31 10:27 | Outpatient (REF) | payer BC, SELFPAY ==
--- NOTE | ~2023-08-31 | CT_ITS ---
EXAMINATION: CT CHEST WITH CONTRAST CLINICAL INFORMATION: Pulmonary nodule. COMPARISON: Chest radiographs 06/28/2023 CT abdomen/pelvis 04/10/2023 TECHNIQUE: Multidetector volumetric CT imaging of the chest was obtained after the administration of 65 mL of Omnipaque 350 intravenous contrast without immediate adverse reactions. Axial MIP volume rendering provided. Sagittal and coronal reformatted images were obtained. This CT examination was performed using dose optimization techniques as appropriate, variously including the following: *Automated exposure control *Adjustment of mA and/or kV according to patient size (this includes techniques or standardized protocols for targeted exams where dose is matched to indication/reason for exam; i.e. extremities or head) *Use of iterative reconstruction technique DLP: 131 mGy-cm FINDINGS: LUNGS: No suspicious pulmonary nodules. No focal consolidation. Central airways are patent. MEDIASTINUM: Imaged thyroid gland is unremarkable. No mediastinal or hilar lymphadenopathy. Great vessels are of normal caliber. Heart size is normal. No pericardial effusion. PLEURA: No pleural effusion. AXILLA: No axillary lymphadenopathy. UPPER ABDOMEN: Scattered hepatic cysts. Hepatic steatosis. No adrenal mass. OSSEOUS STRUCTURES: No destructive bone lesions. CT/CT chest w IV con IMPRESSION: No suspicious pulmonary nodule. No acute intrathoracic abnormality.
[2023-08-31] MEDS: iohexoL 350 MG/ML 100 ML INFUS..BTL 65 ML IV (11:38)
[2023-09-04 07:45] LABS: Creatinine POC 0.7 mg/dL (0.5-1.4); GFR POC > 60
== END 2023-08-31 10:28 | disposition home or self-care (01) ==
LOC: HO.CT 10:27
PROVIDERS: PCP Internal Medicine; Visit Provider Internal Medicine
DX: R91.1 Solitary pulmonary nodule (principal)
CPT/HCPCS: 71260; 82565; Q9967

== ENCOUNTER 2024-02-05 08:57 | Outpatient (REF) | payer BC, SELFPAY ==
--- NOTE | ~2024-02-05 | FL_ITS ---
EXAMINATION: XR FLUOROSCOPY UPPER GI WITH AIR CLINICAL INFORMATION: Abdominal discomfort, epigastric. COMPARISON: No prior. TECHNIQUE: Fluoroscopic air contrast upper GI examination was performed utilizing standard techniques with thin and thick barium and effervescent granules. Numerous spot images were obtained. FINDINGS: Dual and single contrast images of the esophagus demonstrate normal caliber, contour, and mucosal pattern. No evidence of stricture, mass, or ulcerations identified. Esophageal peristalsis is moderately disorganized. No evidence of hiatus hernia identified. Mild gastroesophageal reflux is seen up to the distal esophagus. Dual contrast and single contrast images of the stomach demonstrated normal contour and mucosal pattern without evidence of mass, ulceration, or other abnormality. Contrast freely passed into the gastric antrum and duodenal bulb without delay. Single and air-contrast images of the duodenal bulb demonstrate no abnormality. The duodenal sweep and proximal jejunum demonstrate normal caliber but prominent folds, possibly representing proximal enteritis. This could be on the basis of peptic or inflammatory disease. FLUOROSCOPY TIME: 3 minutes 54 seconds Number of Spot Images: 8 Number of Cine: 13 DOSE AREA PRODUCT: 2181 uGy-m2 (microgray-meter squared) FL/FL upper GI w air w Ba Swallow IMPRESSION: 1. Moderately disorganized esophageal peristalsis. 2. Mild gastroesophageal reflux. 3. Fold thickening of the duodenum and proximal jejunum, findings which could represent underlying peptic disease or proximal enteritis. This procedure was performed by Arturo Mata PA-C, and supervised by Dr. Lopez Electronically signed by: Obed Lopez MD 02/05/2024 04:19 PM [facility] Workstation: [id number]
== END 2024-02-05 08:58 | disposition home or self-care (01) ==
LOC: HO.XRAY 08:57
PROVIDERS: PCP Internal Medicine; Visit Provider Internal Medicine
DX: K31.89 Other diseases of stomach and duodenum (principal)
CPT/HCPCS: 74246

== ENCOUNTER → 2024-02-05 09:00 | Outpatient (BNV) | payer BC, SELFPAY | PROVIDERS: PCP Internal Medicine; Visit Provider Physician Assistant Surgical | DX: R10.13 Epigastric pain (principal) | CPT/HCPCS: 74246 ==

== ENCOUNTER 2024-04-25 15:25 | Outpatient (REF) | payer BC, SELFPAY ==
--- NOTE | ~2024-04-25 | XR_ITS ---
CLINICAL HISTORY: RIGHT SIDED ABD PAIN. 2 view abdomen Comparison: 04/25/2024 Findings: Lung bases unremarkable. No pneumoperitoneum or pneumatosis. There is a left flank calcification, possible renal calculus versus material within stomach. No acute fractures. IMPRESSION: Questionable left renal parenchymal calculus versus opaque material within bowel. Otherwise no change from prior study This document has been electronically signed by: Reid Loyola MD on 04/27/2024 07:45:29
== END 2024-04-25 15:26 | disposition home or self-care (01) ==
LOC: HO.HMGCX 15:25
PROVIDERS: PCP Internal Medicine; Visit Provider Internal Medicine
DX: R53.83 Other fatigue (principal); R10.9 Unspecified abdominal pain
CPT/HCPCS: 74019

== ENCOUNTER 2024-04-26 09:23 | Outpatient (REF) | payer BC, SELFPAY ==
[2024-04-26 15:44] LABS: Alanine Aminotransferase 22 U/L (0-40); Albumin Level 4.4 g/dL (3.5-5.0); Alkaline Phosphatase 93 U/L (39-117); Anion Gap 10 (12-20); Aspartate Amino Transferase 27 U/L (5-37); Bilirubin Total 0.4 mg/dL (0.0-1.0); Blood Urea Nitrogen 11 mg/dL (9-16); Calcium 9.7 mg/dL (8.4-10.2); Carbon Dioxide 30 mmol/L (22-29); Chloride 107 mmol/L (96-108); Estimated Glomerular Filt Rate > 60; Glucose Random 96 mg/dL (60-115); Potassium 4.7 mmol/L (3.3-5.1); Sodium 142 mmol/L (135-145); Total Protein 7.8 g/dL (6.5-8.0)
== END 2024-04-26 09:24 | disposition home or self-care (01) ==
LOC: HO.HMGCLDS 09:23
PROVIDERS: PCP Internal Medicine; Visit Provider Internal Medicine
DX: R53.83 Other fatigue (principal)
CPT/HCPCS: 36415; 80053

== ENCOUNTER 2024-05-06 09:17 | Outpatient (REF) | payer BC, SELFPAY ==
[2024-05-06 11:12] LABS: Estimated Average Glucose 123 mg/dL; Hemoglobin A1C 155.2843 umol/L; Hemoglobin A1c % 5.9 % (<6.0); Total Hemoglobin (HGBA1C) 3740.9806 umol/L
== END 2024-05-06 09:18 | disposition home or self-care (01) ==
LOC: HO.HMGCLDS 09:17
PROVIDERS: PCP Internal Medicine; Visit Provider Internal Medicine
DX: E11.9 Type 2 diabetes mellitus without complications (principal)
CPT/HCPCS: 36415; 83036

== ENCOUNTER 2024-05-07 12:15 | Outpatient (REF) | payer BC, SELFPAY ==
--- NOTE | ~2024-05-07 | XR_ITS ---
EXAMINATION: XR SHOULDER, LEFT CLINICAL INFORMATION: LEFT SHOULDER PAIN. COMPARISON: None. TECHNIQUE: AP external rotation, Grashey, scapular Y, and axillary views of the left shoulder. FINDINGS: Normal alignment. No fracture or dislocation. No suspicious bone lesion. Normal glenohumeral joint. Normal-appearing AC joint. No significant spurring along the undersurface. Neutral lateral acromion without spur. No loss of subacromial space. Remainder the bones and soft tissue structures appear normal. XR/XR shoulder LT min 2V IMPRESSION: Normal left shoulder. Electronically signed by: Obed Lopez MD 05/08/2024 08:42 AM [facility]
== END 2024-05-07 12:16 | disposition home or self-care (01) ==
LOC: HO.HMGCX 12:15
PROVIDERS: PCP Internal Medicine; Visit Provider Internal Medicine
DX: M25.512 Pain in left shoulder (principal)
CPT/HCPCS: 73030

== ENCOUNTER → 2024-05-07 12:20 | Outpatient (BNV) | payer BC, SELFPAY | PROVIDERS: PCP Internal Medicine; Visit Provider Radiology Diagnostic Radiology | DX: M25.512 Pain in left shoulder (principal) | CPT/HCPCS: 73030 ==

== ENCOUNTER 2024-05-15 10:44 | Outpatient (REF) | payer BC, SELFPAY ==
--- NOTE | ~2024-05-15 | XR_ITS ---
EXAMINATION: XR CERVICAL SPINE CLINICAL INFORMATION: R/O DJD PAIN COMPARISON: None available. TECHNIQUE: 6 views of the cervical spine, inclusive of flexion and extension views, were obtained. FINDINGS: Craniocervical junction is intact. Marginal osteophyte formation and endplate sclerosis and decreased intervertebral disc height at C5-6 and C6-7 levels. No gross malalignment. Right neuroforamen narrowing secondary to osteophyte formation at C3-4 C4-5 C5-6 and likely C6-7. Mild left neuroforamina narrowing at C5-6 and C6-7 levels secondary to osteophyte formation. Upper airway is patent. XR/XR cervical spine min 6V IMPRESSION: Multilevel cervical spondylosis C3 C7 more conspicuous at C5-6 and C6-7 levels resulting in multilevel right neuroforamina stenosis C3 C7 and left neuroforamina stenosis C5-6 and C6-7. Electronically signed by: Fernando Lockwood MD 05/15/2024 11:33 AM [facility]
--- OUTSIDE RECORDS SUMMARY | 2024-05-15 12:33 | XMS_ITS ---
Author Organization [facility] Address [address] [place] [address] Care Team Providers Care Coordinate Measuring Machine Technician Name Role Phone Leo Nagy MD Primary Care Provider Unavailab Romulo Man [phone] REASON FOR VISIT screening Encounters Encounter Location Date Provider Diagnosis [facility] [address] [place] [phone] 11/21/2022 Romulo Guerrero Colon cancer scree varghese Z12.11 ; Colon polyp K63.5 and Internal hemorrhoids K64.8 ASSESSMENTS Encounter Date Diagnosis Assessment Notes Treatment Notes Treatment Clinical Notes 11/21/2022 Colon cancer screening (ICD-10 - Z12.11) 11/21/2022 Colon polyp (ICD-10 - K63.5) 11/21/2022 Internal hemorrhoids (ICD-10 - K64.8) PLAN OF TREATMENT Next Appt Details Provider Name:Romulo Guerrero , 05/21/2024 11:10:00 AM, [address], [address], [place], [address],
--- OUTSIDE RECORDS SUMMARY | 2024-05-15 12:33 | XMS_ITS ---
Author Organization [facility] Address [address] [place] [address] Care Team Providers Care Card Checker Name Role Phone Leo Nagy MD Primary Care Provider Unavailab Romulo Man Unavailable [phone] Encounters Encounter Location Date Provider Diagnosis [facility] [address] [place] [address] 11/22/2022 Romulo Guerrero PLAN OF TREATMENT Next Appt Details Provider Name:Romulo Guerrero , 05/21/2024 11:10:00 AM, [address], [address], [place], [address],
--- OUTSIDE RECORDS SUMMARY | 2024-05-15 12:33 | XMS_ITS | Patient Health Record ---
Author Organization [facility] Address [address] [place] [address] Care Team Providers Care Static Balancer Name Role Phone Leo Bravo MD Primary Care Provider UnavailRomulo Campbell Unavailable [phone] ALLERGIES No Known Allergies REASON FOR REFERRAL Referring Provider First Name Leo Referring Provider Last Name Yakov Referring Provider Speciality Internal M edicine Referred Organization [facility] Referred Provider Romulo Guerrero Referred Address [address],[place], [place],[address], Referred Provider Specialty Forensic Psy chiatry General Notes Gabrielle Call 025 10:51:40 AM EST > requested an o blue referral from dr bravo's office [phone] Guerrero on 05-21-2024 Referral Priority Routine MEDICATIONS Medication SIG (Take, Route, Frequency, Duration) Notes Start Date End Date Status PARoxetine HCl 40 MG Oral for 60 Not-Taking Ibuprofen 600 MG Oral for 30 PRN A ctive Atorvastatin Calcium 10 MG Oral for 90 Active LORazepam 2 MG 1 Oral TID Acti ve IMMUNIZATIONS Vaccine Route Administration Date Status Comme nts Influenza Unknown 12/21/2021 Administered SOCIAL HISTORY Tobacco Use: Social History Observation Description Date Details (start date - stop date) Never Smoker NA - NA Sex Assigned At : Social History Observation Description Sex Assigned At Unknown Tobacco Use/Smoking Question Answer Notes Patient is a nonsmoker Alcohol Screen Question Answer Notes Did you have a drink containing alcohol in the p ast year? No Points 0 Interpretation Negative PROBLEMS Problem Type ICD Code Onset Dates Problem Status W/U Status Risk SNOMED Code Notes Problem Colon cancer screening (Z12.11) Active confirmed 375680439 Problem Preprocedural examination (Z01.818) Active confirmed 640532662877324 PLAN OF TREATMENT Future Test Test Name Order Date COLONOSCOPY 08/31/2022 Next Appt Details Provider Name:Romulo Guerrero , 05/21/2024 11:10:00 AM, [address] [place] [address], [address], [place], [address], Insurance Providers Payer Name Payer Address Payer Phone Subscriber Number Group Number Insured Name Patient Relationship to Insured Coverage Start Date Coverage End Date [facility] [employer] CLAIMS [address] [place] [address] [phone] [id number] 5 INGRID STAHL (DANIEL) Self - patient is the insured MEDICAL (GENERAL) HISTORY Medical History History ICD Code Anxiety Hyperlipidemia Denies [place],DM,CVA,Lung disease,renal dise ase Surgical History Surgery Date(Month/Year)
== END 2024-05-15 10:45 | disposition home or self-care (01) ==
LOC: HO.HMGCX 10:44
PROVIDERS: PCP Internal Medicine; Visit Provider Internal Medicine
DX: M54.2 Cervicalgia (principal)
CPT/HCPCS: 72052

== ENCOUNTER → 2024-05-15 10:48 | Outpatient (BNV) | payer BC, SELFPAY | PROVIDERS: PCP Internal Medicine; Visit Provider Radiology Diagnostic Radiology | DX: M54.2 Cervicalgia (principal) | CPT/HCPCS: 72052 ==

== ENCOUNTER 2024-08-16 09:29 | Outpatient (REF) | payer BC, SELFPAY ==
--- OUTSIDE RECORDS SUMMARY | 2024-08-16 09:43 | XMS_ITS | Patient Health Record ---
Author Organization [facility] Address [address] [place] [address] Care Team Providers Care Monkey Breeder Name Role Phone Leo Bravo MD Primary Care Provider Romulo Oneal Unavailable [phone] Allergies No Known Allergies Reason For Referral Referring Provider First Name Leo Referring Provider Last Name Yakov Referring Provider Speciality Internal M edicine Referred Organization [facility] Referred Provider Romulo Guerrero Referred Address [address],[place], [place],[address], Referred Provider Specialty Forensic Psy chiatry General Notes Gabrielle Call 025 10:51:40 AM EST > requested an o blue referral from dr bravo's office [phone] Guerrero on 05-21-2024 Referral Priority Routine Medications Medication SIG (Take, Route, Frequency, Duration) Notes Start Date End Date Status PARoxetine HCl 40 MG Oral for 60 Not-Taking Ibuprofen 600 MG Oral for 30 PRN A ctive Atorvastatin Calcium 10 MG Oral for 90 Active LORazepam 2 MG 1 Oral TID Acti ve Immunizations Vaccine Route Administration Date Status Comme nts Influenza Unknown 12/21/2021 Administered Social History Tobacco Use: Social History Observation Description Date Details (start date - stop date) Never Smoker NA - NA Tobacco Use/Smoking Question Answer Notes Patient is a nonsmoker Alcohol Screen Question Answer Notes Did you have a drink containing alcohol in the p ast year? No Points 0 Interpretation Negative Section Notes: Nonsmoker; no alcohol Problems Problem Type SNOMED Code ICD Code Onset Dates Problem Status W/U Status Risk Notes Problem [id number] Colon cancer screening (Z12.11) Active confirmed Problem [id number] Preprocedural examination (Z01.818) Active confirmed Encounters Encounter Location Date Provider Diagnosis [facility] [address] [place] [address] 05/15/2024 Romulo Guerrero Plan Of Treatment Future Test Test Name Order Date COLONOSCOPY 08/31/2022 Insurance Providers Payer Name Payer Address Payer Phone Subscriber Number Group Number Insured Name Patient Relationship to Insured Coverage Start Date Coverage End Date [facility] PROFESSIONAL CLAIMS [address] [place] [address] [id number] 5 INGRID STAHL (DANIEL) Self - patient is the insured Medical (General) History Medical History History ICD Code Anxiety Hyperlipidemia Denies [place],DM,CVA,Lung disease,renal dise ase Surgical History Surgery Date(Month/Year)
--- OUTSIDE RECORDS SUMMARY | 2024-08-16 09:43 | XMS_ITS ---
Author Organization [facility] Address [address] [place] [address] Care Team Providers Care Finish Repair Worker Name Role Phone Yakov URBINA, Leo Primary Care Provider Unavailab Romulo Man [phone] REASON FOR VISIT Patient presents today for stomach issues Encounters Encounter Location Date Provider Diagnosis [facility] [address] [place] [address] 05/21/2024 Romulo Guerrero Plan Of Treatment No Information Progress Notes * INGRID STAHL (DANIEL):[birth year]01 (54 yo M)Acc No.[id number]:05/21/2024 Progress Notes Patient:?INGRID STAHL (DANIEL ) Provider:?Romulo Guerrero MD :1970???Age:53 Y???Sex:Male Harrison e:05/21/2024 Address:[address] [place] Pcp:Leo Nagy MD Subjective: * Chief Complaints: * ???1. Patient presents today for stomach issues. * Medical History:? Objective: * Vitals:? Assessment: Plan: * Treatment: * * The named appointment provid er may or may not be the originator of this progress note, and it is not deemed complete until electronically signed by the appointment provider. Sign off status: Pending * Provider:?Romulo Guerrero MD Date:? 025 Generated for Gus rapp/Mirella/eTkathysmitting on:?08/16/2024 09:42 AM EDT
--- OUTSIDE RECORDS SUMMARY | 2024-08-16 09:43 | XMS_ITS ---
Author Organization [facility] Address [address] [place] [address] Care Team Providers Care Certified Flex Endoscope Reprocessor Name Role Phone Leo Nagy MD Primary Care Provider Unavailab Romulo Man [phone] Encounters Encounter Location Date Provider Diagnosis [facility] [address] [place] [address] 05/15/2024 Romulo Guerrero Plan Of Treatment No Information Progress Notes * INGRID STAHL (DANIEL):[birth year] (53 yo M)Acc No.[id number]:05/15/2024 Patient:?STAHL INGRID (DANIEL ) :1970???Age:53 Y???Sex:Male Address:[address] [place], [address] * true * Date:? Generated for Desireei tamela/Mirella/eTransmitting on:?08/16/2024 09:43 AM EDT
--- OUTSIDE RECORDS SUMMARY | 2024-08-16 09:43 | XMS_ITS ---
Author Organization [facility] Address [address] [place] [address] Care Team Providers Care Data Processing Equipment Repairer Name Role Phone Yakov URBINA, Leo Primary Care Provider Unavailab Romulo Man [phone] REASON FOR VISIT STOMACH ISSUES Encounters Encounter Location Date Provider Diagnosis [facility] [address] [place] [address] 07/02/2024 Romulo Guerrero Plan Of Treatment No Information Progress Notes * INGRID STAHL (DANIEL):[birth year] (54 yo M)Acc No.[id number]:07/02/2024 Progress Notes Patient:?INGRID STAHL (DANIEL ) Provider:?Romulo Guerrero MD :1970???Age:54 Y???Sex:Male Harrison e:07/02/2024 Address:[address] [place] Pcp:Leo Nagy MD Subjective: * Chief Complaints: * ???1. STOMACH ISSUES. * Medical History:? Objective: * Vitals:? Assessment: Plan: * Treatment: * * The named appointment provid er may or may not be the originator of this progress note, and it is not deemed complete until electronically signed by the appointment provider. Sign off status: Pending * Provider:?Romulo Guerrero MD Date:? 025 Generated for Desireei tamela/Gabrielag/eTransmitting on:?08/16/2024 09:42 AM EDT
[2024-08-16 13:29] LABS: Estimated Average Glucose 123 mg/dL; Hemoglobin A1c % 5.9 % (<6.0); Total Hemoglobin (HGBA1C) 3690.7655 umol/L
[2024-08-16 13:34] LABS: Cholesterol 133 mg/dL (<200); Glucose Fasting 98 mg/dL (60-99); HDL Cholesterol 61 mg/dL (>40); LDL Cholesterol Calculated 57 mg/dL (<100); Triglycerides 78 mg/dL (<150)
== END 2024-08-16 09:30 | disposition home or self-care (01) ==
LOC: HO.HMGCLDS 09:29
PROVIDERS: PCP Internal Medicine; Visit Provider Internal Medicine
DX: E11.9 Type 2 diabetes mellitus without complications (principal); E78.5 Hyperlipidemia, unspecified
CPT/HCPCS: 36415; 80061; 82947; 83036

== ENCOUNTER 2024-08-20 13:32 | Outpatient (REF) | payer BC, SELFPAY ==
--- NOTE | ~2024-08-20 | XR_ITS ---
EXAMINATION: XR LUMBOSACRAL SPINE CLINICAL INFORMATION: LOW BACK PAIN COMPARISON: August 01, 2017 TECHNIQUE: Three views of the lumbosacral spine. FINDINGS: Endplate sclerosis marginal osteophyte formation and decreased intervertebral disc height at L5-S1. Facet joint hypertrophy at L5-S1. No acute cortical disruption or malalignment. No lytic or blastic lesions. XR/XR lumbar spine 2-3V IMPRESSION: Spondylosis L5-S1. Worsened since prior examination. Electronically signed by: Fernando Lockwood MD 08/20/2024 01:52 PM EDT
--- OUTSIDE RECORDS SUMMARY | 2024-08-20 14:44 | XMS_ITS | Patient Health Record ---
Author Organization [facility] Address [address] [place] [address] Care Team Providers Care Event Promotions Coordinator Name Role Phone Leo Bravo MD Primary Care Provider Romulo Oneal Unavailable [phone] Allergies No Known Allergies Reason For Referral Referring Provider First Name Leo Referring Provider Last Name Yakov Referring Provider Speciality Internal M edicine Referred Organization [facility] Referred Provider Romulo Guerrero Referred Address [address],[place], [place],[address], Referred Provider Specialty Forensic Psy chiatry General Notes Gabrielle Call 025 10:51:40 AM EST > requested an o blue referral from dr bravo's office [phone] Guerrero on 05-21-2024 [...] Problem Status W/U Status Risk Notes Problem [id number] Colon cancer screening (Z12.11) Active confirmed Problem [id number] Preprocedural examination (Z01.818) Active confirmed Encounters Encounter Location Date Provider Diagnosis [facility] [address] [place] [address] 05/15/2024 Romulo Guerrero Plan Of Treatment Future Test Test Name Order Date COLONOSCOPY 08/31/2022 Insurance Providers Payer Name Payer Address Payer Phone Subscriber Number Group Number Insured Name Patient Relationship to Insured Coverage Start Date Coverage End Date [facility] [employer] CLAIM[employer] [address] [place] [address] [id number] INGRID STAHL (DANIEL) Self - patient is the insured Medical (General) History Medical History History ICD Code Anxiety Hyperlipidemia Denies IA,DM,CVA,Lung disease,renal dise ase Surgical History Surgery Date(Month/Year)
--- OUTSIDE RECORDS SUMMARY | 2024-08-20 14:44 | XMS_ITS ---
Author Organization [facility] Address [address] [place] [address] Care Team Providers Care Garage Door Service Technician Name Role Phone Yakov URBINA, Leo Primary Care Provider Unavailab Romulo Man [phone] REASON FOR VISIT Patient presents today for stomach issues Encounters Encounter Location Date Provider Diagnosis [facility] [address] [place] [address] 05/21/2024 Romulo Guerrero Plan Of Treatment No Information Progress Notes * EVELYN STAHLGold (DANIEL):[birth year] (54 yo M)Acc No.[id number]:05/21/2024 Progress Notes Patient:?INGRID STAHL (DANIEL ) Provider:?Romulo Guerrero MD :1970???Age:53 Y???Sex:Male Harrison e:05/21/2024 Address:[address] [id number] Pcp:Leo Nagy MD Subjective: * Chief Complaints: [...] Guerrero MD Date:? 025 Generated for Gus rapp/Mirella/eTransmitting on:?08/20/2024 02:44 PM EDT
--- OUTSIDE RECORDS SUMMARY | 2024-08-20 14:45 | XMS_ITS ---
Author Organization [facility] Address [address] [place] [address] Care Team Providers Care Lpn Medical Assistant Name Role Phone Yakov URBINA, Leo Primary Care Provider Unavailab Romulo Man [phone] REASON FOR VISIT STOMACH ISSUES Encounters Encounter Location Date Provider Diagnosis [facility] [address] [place] [phone] 07/02/2024 Romulo Guerrero Plan Of Treatment No Information Progress Notes * INGRID STAHL (DANIEL):[birth year] (54 yo M)Acc No.[id number]:07/02/2024 Progress Notes Patient:?INGRID STAHL (DANIEL ) Provider:?Romulo Guerrero MD :1970???Age:54 Y???Sex:Male Harrison e:07/02/2024 Address:[address] [id number] Pcp:Leo Nagy MD Subjective: * Chief Complaints: [...] Guerrero MD Date:? 025 Generated for Desireei ng/Favipulg/eTransmitting on:?08/20/2024 02:44 PM EDT
--- OUTSIDE RECORDS SUMMARY | 2024-08-20 14:45 | XMS_ITS ---
Author Organization [facility] Address [address] [place] [address] Care Team Providers Care Corporate Planner Name Role Phone Leo Nagy MD Primary Care Provider Unavailab Romulo Man [phone] Encounters Encounter Location Date Provider Diagnosis [facility] [address] [place] [address] 05/15/2024 Romulo Guerrero Plan Of Treatment No Information Progress Notes * INGRID STAHL (DANIEL):[birth year] (53 yo M)Acc No.[id number]:05/15/2024 Patient:?STAHL INGRID (DANIEL ) :1970???Age:53 Y???Sex:Male Address:[address] [place], [address] * true * Date:? Generated for Gus rapp/Mirella/eTransmitting on:?08/20/2024 02:45 PM EDT
== END 2024-08-20 13:33 | disposition home or self-care (01) ==
LOC: HO.HMGCX 13:32
PROVIDERS: PCP Internal Medicine; Visit Provider Internal Medicine
DX: M54.50 Low back pain, unspecified (principal)
CPT/HCPCS: 72100

== ENCOUNTER → 2024-08-20 13:38 | Outpatient (BNV) | payer BC, SELFPAY | PROVIDERS: PCP Internal Medicine; Visit Provider Radiology Diagnostic Radiology | DX: M47.817 Spondylosis without myelopathy or radiculopathy, lumbosacral region (principal) | CPT/HCPCS: 72100 ==